=== PATIENT | male | born 1975 | race Two or more races ===

== ENCOUNTER 2021-08-17 19:31 | Emergency (ER) | payer OTHER ==
[~2021-08-17] VITALS: Ht 175.3 cm; Wt 92.5 kg
[2021-08-18] MEDS ORDERED: TAMS0.4C PO (01:52)
[2021-08-18] MEDS ORDERED: KETO10TA2 PO (01:52)
[2021-08-18] MEDS ORDERED: CEPHALEXIN500 MG PO (01:52)
== END 2021-08-18 02:03 ==
LOC: ER 19:31
DX: N23 Unspecified renal colic (principal); N20.1 Calculus of ureter

== ENCOUNTER 2021-08-19 17:32 | Emergency (ER) | payer OTHER ==
[~2021-08-19] VITALS: Ht 175.3 cm; Wt 93.0 kg
[~2021-08-19 17:32] MED LIST: CEPHALEXIN500 MG PO; KETO10TA2 PO; TAMS0.4C PO
== END 2021-08-20 00:31 | disposition home or self-care (01) ==
LOC: ER 17:32
DX: N23 Unspecified renal colic (principal)